=== PATIENT | male | born 1990 ===

== ENCOUNTER → 2024-01-25 | Outpatient (CLI) | payer OTHER | END | disposition home or self-care (01) | LOC: TELEHEALTH 09:46 | PROVIDERS: ATTEND Neurological Surgery | DX: G89.29 Other chronic pain (principal); M54.50 Low back pain, unspecified; M89.9 Disorder of bone, unspecified | CPT/HCPCS: Q3014 ==

== ENCOUNTER → 2024-10-09 | Outpatient (CLI) | payer OTHER | END | disposition home or self-care (01) | LOC: TELEHEALTH 08:27 | PROVIDERS: ATTEND Neurological Surgery | DX: Z09 Encounter for follow-up examination after completed treatment for conditions other than malignant neoplasm (principal); M54.50 Low back pain, unspecified; G89.29 Other chronic pain | CPT/HCPCS: Q3014 ==